=== PATIENT | female | born 1965 | race Caucasian/White ===

== ENCOUNTER 2017-09-29 10:34 | Emergency (ER) | payer OTHER ==
[~2017-09-29] VITALS: Ht 157.5 cm; Wt 72.6 kg
[~2017-09-29 10:34] MED LIST: IBUPROFEN 800800 MG PO; THYROID MEDICATION; TRAMADOL 50 MG50 MG PO
[2017-09-29] MEDS ORDERED: SYNTHROID50 MCG PO (10:53)
[2017-09-29] MEDS ORDERED: NORFLEX100 MG PO (13:54)
[2017-09-29] MEDS ORDERED: NAPROSYN500 MG PO (13:54)
[2017-09-29 14:04] VITALS: BP 120/81
== END 2017-09-29 14:05 | disposition home or self-care (01) ==
LOC: M.ERS 10:34
DX: S13.4XXA Sprain of ligaments of cervical spine, initial encounter (principal); Z98.890 Other specified postprocedural states; Z88.2 Allergy status to sulfonamides; V49.9XXA Car occupant (driver) (passenger) injured in unspecified traffic accident, initial encounter; Y93.89 Activity, other specified; Y92.89 Other specified places as the place of occurrence of the external cause; Y99.8 Other external cause status

== ENCOUNTER → 2017-10-25 | Outpatient (CLI) | payer OTHER ==
[~2017-10-25] MED LIST changes: +NAPROSYN500 MG PO; +NORFLEX100 MG PO; +SYNTHROID50 MCG PO
== END ==
LOC: M.ULTRA 07:47
DX: R10.9 Unspecified abdominal pain (principal); R94.5 Abnormal results of liver function studies

== ENCOUNTER → 2018-03-17 | Outpatient (CLI) | payer OTHER | LOC: M.ULTRA 15:25 | DX: E06.3 Autoimmune thyroiditis (principal); E04.1 Nontoxic single thyroid nodule; E03.9 Hypothyroidism, unspecified ==

== ENCOUNTER 2018-09-05 22:13 | Emergency (ER) | payer OTHER ==
[~2018-09-05] VITALS: Ht 157.5 cm; Wt 77.1 kg
[2018-09-05 22:50] LABS: ABSOLUTE EOSINOPHILS 0.1 thou/uL (0.0-0.7); ABSOLUTE LYMPHOCYTES 0.6 thou/uL (0.8-5.3); ABSOLUTE MONOCYTES 0.3 thou/uL (0.0-1.2); ABSOLUTE NEUTROPHILS 4.7 thou/uL (1.6-8.1); BASOPHILS 0.4 %; EOSINOPHILS 1.9 %; HEMATOCRIT 42.7 % (37.0-47.0); HEMOGLOBIN 14.7 gm/dL (12.0-15.0); LYMPHOCYTES 11.2 %; MCH 30.6 pg (26.0-34.0); MCHC 34.3 g/dL (28.0-37.0); MCV 89.1 fL (80.0-100.0); MONOCYTES 4.8 %; MPV 7.6 fl. (7.2-11.1); NUCLEATED RBCS 0 /100WBC; PLATELET COUNT* 174 thou/uL (150-400); POLYS 81.7 %; RBC 4.79 mil/uL (4.20-5.00); RDW-CV 14.5 % (10.5-14.5); WBC 5.8 thou/uL (4.0-11.0)
[2018-09-05 23:07] LABS: CREATININE 0.9 mg/dL (0.6-1.3); POTASSIUM 3.6 mmol/L (3.5-5.1)
[2018-09-05 23:17] LABS: ALBUMIN 4.3 g/dL (3.4-5.0); TOTAL BILIRUBIN 0.6 mg/dL (<0.1-1.0); TOTAL PROTEIN 7.9 g/dL (6.4-8.2)
[2018-09-06] MEDS ORDERED: BENTYL 10 MG CA10 M1 PO (00:09)
[2018-09-06] MEDS ORDERED: ZOFRAN4 MG PO (00:09)
[2018-09-06 00:36] LABS: URINE BLOOD NEGATIVE (Negative); URINE CLARITY CLEAR; URINE COLOR YELLOW; URINE GLUCOSE-RANDOM NEGATIVE (Negative); URINE KETONES TRACE (Negative); URINE LEUKOCYTES-REFLEX NEGATIVE (Negative); URINE NITRITE-REFLEX NEGATIVE (Negative); URINE PROTEIN NEGATIVE (Negative); URINE SPECIFIC GRAVITY 1.025 (1.005-1.030); URINE UROBILINOGEN 0.2 E.U./dl (0.2-1.0)
[2018-09-06 00:40] LABS: URINE BILIRUBIN 1+ (Negative)
[2018-09-06 00:43] LABS: ICTOTEST (BILI CONFIRMATORY) Negative (Negative)
[2018-09-06 00:58] VITALS: BP 116/63
--- NOTE | 2018-09-06 16:23 | EKG ---
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
== END 2018-09-06 00:59 | disposition home or self-care (01) ==
LOC: M.ERS 22:13
PROVIDERS: Nurse Practitioner Family
DX: R10.13 Epigastric pain (principal); R11.2 Nausea with vomiting, unspecified; R19.7 Diarrhea, unspecified; Z88.2 Allergy status to sulfonamides; Z90.89 Acquired absence of other organs; Z90.49 Acquired absence of other specified parts of digestive tract

== ENCOUNTER → 2019-06-08 | Outpatient (CLI) | payer OTHER ==
[~2019-06-08] MED LIST changes: +BENTYL 10 MG CA10 M1 PO; +ZOFRAN4 MG PO
== END ==
LOC: M.RAD 05-26 16:27 → M.ULTRA 05-30 15:30 → M.RAD 05-30 16:00 → M.ULTRA 05-30 16:00 → M.RAD 14:20 → M.ULTRA 15:00
DX: Z12.31 Encounter for screening mammogram for malignant neoplasm of breast (principal); E04.2 Nontoxic multinodular goiter

== ENCOUNTER 2019-10-03 19:19 | Emergency (ER) | payer OTHER ==
[~2019-10-03] VITALS: Ht 157.5 cm; Wt 77.1 kg
[2019-10-03] MEDS ORDERED: HYDROCHLOROTHIA25 M2 PO (20:03)
[2019-10-03 21:46] LABS: ABSOLUTE BASOPHILS 0.1 thou/uL (0.0-0.2); ABSOLUTE EOSINOPHILS 0.2 thou/uL (0.0-0.7); ABSOLUTE LYMPHOCYTES 2.2 thou/uL (0.8-5.3); ABSOLUTE MONOCYTES 0.4 thou/uL (0.0-1.2); ABSOLUTE NEUTROPHILS 3.6 thou/uL (1.6-8.1); BASOPHILS 0.9 %; HEMATOCRIT 42.2 % (37.0-47.0); HEMOGLOBIN 14.6 gm/dL (12.0-15.0); LYMPHOCYTES 34.2 %; MCH 31.1 pg (26.0-34.0); MCHC 34.6 g/dL (28.0-37.0); MCV 89.7 fL (80.0-100.0); MONOCYTES 6.1 %; MPV 7.2 fl. (7.2-11.1); NUCLEATED RBCS 0 /100WBC; PLATELET COUNT* 204 thou/uL (150-400); POLYS 55.8 %; RDW-CV 14.5 % (10.5-14.5); WBC 6.5 thou/uL (4.0-11.0)
[2019-10-03 21:57] LABS: CREATININE 0.8 mg/dL (0.6-1.3)
[2019-10-03 22:02] LABS: ALBUMIN 4.3 g/dL (3.4-5.0); CALCIUM 9.1 mg/dL (8.5-10.1); TOTAL BILIRUBIN 0.4 mg/dL (<0.1-1.0); TOTAL PROTEIN 8.1 g/dL (6.4-8.2)
[2019-10-03 23:30] VITALS: BP 146/88
--- NOTE | 2019-10-04 13:57 | EKG ---
[place] [address] ELECTROCARDIOGRAM REPORT Name: MARYLIN MARROQUIN Room: [facility]#: [id number] Admission: 10/03/19 Attend Phys: Discharge: 10/03/19 Date of : 63 Date of Service: 10/03/192006 Report #: [id number] THIS REPORT FOR: cc: Wilmer Nam John E. DO Holkins, John M. 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
== END 2019-10-03 23:30 | disposition home or self-care (01) ==
LOC: M.ERS 19:19
PROVIDERS: Family Medicine
DX: M25.511 Pain in right shoulder (principal); Z90.89 Acquired absence of other organs; Z90.49 Acquired absence of other specified parts of digestive tract; Z88.2 Allergy status to sulfonamides

== ENCOUNTER 2020-08-08 10:43 | Emergency (ER) | payer OTHER ==
[~2020-08-08] VITALS: Ht 157.5 cm; Wt 77.1 kg
[~2020-08-08 10:43] MED LIST changes: +HYDROCHLOROTHIA25 M2 PO; +LEVOTHYROXINE100 MC2 PO; -THYROID MEDICATION
[2020-08-08 11:36] LABS: ABSOLUTE EOSINOPHILS 0.2 thou/uL (0.0-0.7); ABSOLUTE MONOCYTES 0.3 thou/uL (0.0-1.2); ABSOLUTE NEUTROPHILS 2.9 thou/uL (1.6-8.1); BASOPHILS 0.6 %; EOSINOPHILS 2.9 %; HEMATOCRIT 41.8 % (37.0-47.0); HEMOGLOBIN 14.1 gm/dL (12.0-15.0); MCH 30.5 pg (26.0-34.0); MCHC 33.8 g/dL (28.0-37.0); MCV 90.3 fL (80.0-100.0); MONOCYTES 5.5 %; MPV 7.2 fl. (7.2-11.1); NUCLEATED RBCS 0 /100WBC; PLATELET COUNT* 169 thou/uL (150-400); RBC 4.63 mil/uL (4.20-5.00); RDW-CV 14.5 % (10.5-14.5); WBC 5.3 thou/uL (4.0-11.0)
[2020-08-08 11:38] LABS: CREATININE 0.8 mg/dL (0.6-1.3); POTASSIUM 3.6 mmol/L (3.5-5.1)
[2020-08-08 11:42] LABS: ALBUMIN 3.9 g/dL (3.4-5.0); MAGNESIUM 1.9 mg/dL (1.8-2.4); TOTAL BILIRUBIN 0.4 mg/dL (<0.1-1.0); TOTAL PROTEIN 7.3 g/dL (6.4-8.2)
[2020-08-08 12:41] VITALS: BP 108/64
--- NOTE | 2020-08-08 17:30 | EKG ---
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
== END 2020-08-08 12:42 | disposition home or self-care (01) ==
LOC: M.ERS 10:43
PROVIDERS: Emergency Medicine Emergency Medical Services
DX: R07.89 Other chest pain (principal); U07.1 COVID-19; Z90.49 Acquired absence of other specified parts of digestive tract; Z90.89 Acquired absence of other organs; Z88.2 Allergy status to sulfonamides